=== PATIENT | male | born 1940 | race Caucasian/White ===

== ENCOUNTER 2020-02-09 22:38 | Emergency (ER) | payer OTHER, MEDICARE ==
[2020-02-09] MEDS ORDERED: Iopamidol 370 76% 125 ML VIAL FS ONE (22:39)
[2020-02-09 23:06] LABS: #Basophils 0.1 thou/uL (0.0-0.2); #Eosinphils 0.4 thou/uL (0.0-0.7); #Lymphocytes 2.3 thou/uL (1.20-3.40); #Monocytes 0.6 thou/uL (0.11-0.59); #Neutrophils 5.8 thou/uL (1.40-6.50); %Basophils 1.4 % (0.0-1.0); %Eosinophils 3.9 % (0.0-10.0); %Lymphocytes 24.6 % (21.0-51.0); %Monocytes 6.9 % (0.0-10.0); %Neutrophils 63.2 % (42.0-75.0); Hemoglobin 13.8 g/dL (14.0-18.0); Mean Corpuscular HGB CONC 32.8 g/dL (32.0-36.0); Mean Corpuscular Hemoglobin 31.8 pg (27.0-31.0); Mean Corpuscular Volume 97.1 fL (78.0-98.0); Mean Platelet Volume 9.7 fL (7.4-10.4); Platelet Count 224 thou/uL (130-400); RBC Distribution Width 11.9 % (11.5-14.5); Red Blood Cell (RBC) Count 4.34 mill/uL (4.70-6.10); White Blood Cell (WBC) Count 9.2 thou/uL (4.8-10.8)
--- NOTE | 2020-02-09 23:22 | RAD ---
Frontal radiograph chest: 02/09/2020 COMPARISON: 03/13/2013 HISTORY: Fall, altered mental status, cough FINDINGS: Shallow inspiration and body habitus limits detailed assessment. Midline sternotomy wires a re noted. No focal consolidation or alveolar edema. IMPRESSION: No acute findings.
[2020-02-09 23:23] LABS: Bilirubin Negative (Negative); Blood, Urine Negative (Negative); Clarity Clear (Clear); Glucose, Urine (Dipstick) >=1000 mg/dL (Negative); Ketone, Urine Negative (Negative); Leukocyte Negative (Negative); Nitrite Negative (Negative); Protein, Urine (Dipstick) Trace mg/dL (Neg-Trace); Urobilinogen 0.2 mg/dL (Less than 2); pH, Urine 5.5 (5.0-9.0)
[2020-02-09 23:25] LABS: ALT (SGPT) 39 U/L (8-55); AST (SGOT) 41 U/L (5-34); Albumin 3.7 g/dL (3.4-4.8); Alkaline Phosphatase 63 U/L (40-110); Anion Gap 21 mmol/L (10-20); BUN (Urea Nitrogen) 22 mg/dL (8.4-25.7); Bilirubin, Total 0.5 mg/dL (0.2-1.2); Calc. Creatinine Clearance 0 mL/min (70-130); Calcium 8.7 mg/dL (7.8-10.44); Carbon Dioxide 20 mmol/L (23-31); Chloride 102 mmol/L (98-107); Estimated GFR-MDRD 47; Globulin 2.8 g/dL (2.4-3.5); Glucose 300 mg/dL (83-110); Potassium 3.3 mmol/L (3.5-5.1); Protein, Total 6.5 g/dL (5.8-8.1); Sodium 140 mmol/L (136-145)
[2020-02-09] MEDS ORDERED: Potassium Chloride 20 MEQ TAB ONE (23:43)
--- NOTE | 2020-02-10 07:16 | CT ---
Head CT without contrast: 02/09/2020 HISTORY: Fall, weakness TECHNIQUE: Axial CT imaging at 5 mm intervals from vertex through skull base without contrast. Christy l and sagittal reformatted imaging obtained FINDINGS: The visualized paranasal sinuses and mastoid air cells appear well-aerated. There is athero sclerotic calcification of the cavernous carotid arteries. No displaced calvarial fracture, intracranial hemorrhage, midline shift, or mass effect. IMPRESSION: No intracranial hemorrhage or displaced calvarial fracture.
--- NOTE | 2020-02-10 09:03 | CT ---
PRELIMINARY REPORT/[facility]/EMERGENCY AFTER HOURS PROCEDURE EXAM: CTA Head and Neck with Intravenous Contrast. CLINICAL HISTORY: NEW DIZZINESS; ANAT WEAKNESS TECHNIQUE: Axial CTA images of the head and neck performed with intravenous contrast. Two-dimensional MIP and/or three-dimensional MIP and volume rendered reformations were performed. Note: Per PQRS, the description of internal carotid artery percent stenosis, including 0 percent or n ormal exam, is based on [place] Symptomatic Carotid Endarterectomy Trial (NASCET) criteria. CONTRAST: With; ISOVUE 370 110 ML COMPARISON: None provided. FINDINGS: CTA NECK: COMMON CAROTID ARTERIES No significant stenosis. No dissection or occlusion. Atherosclerosis of the left carotid bifurcation . INTERNAL CAROTID ARTERIES No stenosis by NASCET criteria. No dissection or occlusion. Arterial sclerosis of the bilateral para sellar internal carotid arteries. VERTEBRAL ARTERIES No significant stenosis. No dissection or occlusion. CTA HEAD: ANTERIOR CEREBRAL ARTERIES No significant stenosis. No occlusion. No aneurysm. MIDDLE CEREBRAL ARTERIES No significant stenosis. No occlusion. No aneurysm. POSTERIOR CEREBRAL ARTERIES No significant stenosis. No occlusion. No aneurysm. BASILAR ARTERY No significant stenosis. No occlusion. No aneurysm. OTHER: SOFT TISSUES No acute finding. No masses or lymphadenopathy. BONES No acute osseous abnormality. IMPRESSION: Unremarkable CTA of the head and neck. ELECTRONICALLY SIGNED BY: Horace Pool MD Feb 10, 2020 1:35:47 AM SCALING MACHINE OPERATOR This report is intended for review by the ordering physician only, in accordance of law. If you recei ve this report in error, please call [facility] at [phone]. FINAL REPORT Emergent after hours CT angiogram head and neck with IV contrast and 3-D reconstructions HISTORY: New-onset dizziness, bilateral weakness. Patient unable to stand. COMPARISON: Noncontrast CT head 02/09/2020 IMPRESSION: 1. Limited evaluation of the proximal left common carotid artery secondary to dense contrast within t he innominate vein resulting in streak artifact. In addition, there is significant motion within each common carotid artery proximal to the level of the bifurcation which limits assessment of the co mmon carotid arteries at these levels. 2. Prominent vascular calcifications involving the left carotid artery bifurcation resulting in minim al narrowing but the degree of narrowing involving the left internal carotid artery at the origin is less than 50%. Bilateral internal carotid arteries are otherwise patent. 3. Proximal left vertebral artery is obscured due to dense contrast within adjacent venous structures . Bilateral vertebral arteries are otherwise patent and codominant. 4. Patent bilateral anterior cerebral and middle cerebral arteries. 5. Patent basilar artery and left posterior cerebral artery. type origin of the right posterior cerebral artery is present with atretic P1 segment of the right posterior cerebral artery which is a normal variant. 6. No intracranial aneurysm is seen on this exam. 7. Evidence of prior CABG. 8. Degenerative changes of the spine. Findings are in agreement with pulmonary report by [facility]. Transcribed Date/Time: 02/10/2020 9:13 AM
== END 2020-02-10 01:50 | disposition left against medical advice (07) ==
LOC: MADERS 22:38
DX: E87.6 Hypokalemia (principal); E11.65 Type 2 diabetes mellitus with hyperglycemia; E11.9 Type 2 diabetes mellitus without complications; K21.9 Gastro-esophageal reflux disease without esophagitis; Z70.1 Counseling related to patient's sexual behavior and orientation; Z79.899 Other long term (current) drug therapy; Z79.4 Long term (current) use of insulin
CPT/HCPCS: 70450; 70496; 70498; 71045; 80053; 81003; 83880; 84443; 84484; 85025; 93005; Q9967